=== PATIENT | female | born 1995 | race Hispanic/Latino ===

== ENCOUNTER 2017-08-04 16:15 | Emergency (ER) | payer MEDICAID ==
--- NOTE | 2017-08-04 17:06 | ED PDOC ---
HPI: Back Time Seen by Provider: 08/04/17 16:42 Chief Complaint (Nursing): Back Pain Chief Complaint (Provider): Back Pain and diarrhea History Per: Patient History/Exam Limitations: no limitations Onset/Duration Of Symptoms: Days (x 1) Current Symptoms Are (Timing): Still Present Quality Of Discomfort: Aching, "Pain" Additional Complaint(s): 21 year old female presents to the ED with thoracic, aching back pain since she woke up this morning. Over the afternoon, she also developed watery, non bloody diarrhea and a mild loss of appetite. Last week, her mother had an episode of a 24 hour diarrheal illness that spontaneously resolved. She has not taken any medications for pain and does not know the name of her PMD because she has never seen him. Denies recent travel, antibiotic use, nausea, vomiting, fever and chills. PMD: unknown Past Medical History Reviewed: Historical Data, Nursing Documentation, Vital Signs Vital Signs: Last Vital Signs Temp 98.2 F 08/04/17 16:30 Pulse 79 08/04/17 16:27 Resp 14 08/04/17 16:27 BP 110/71 08/04/17 16:27 Pulse Ox 100 08/04/17 16:27 - Medical History PMH: No Chronic Diseases - Surgical History Surgical History: No Surg Hx - Family History Family History: States: Other - Social History Current smoker - smoking cessation education provided: No Alcohol: Occasional Drugs: Denies - Home Medications Home Medications: Ambulatory Orders Medication Instructions Recorded Dicyclomine [Bentyl] 20 mg PO QID PRN #20 tab 08/04/17 Ibuprofen [Motrin Tab] 600 mg PO Q8 PRN #30 tab 08/04/17 - Allergies Allergies/Adverse Reactions: Allergies Allergy/AdvReac Type Severity Reaction Status Date / Time No Known Allergies Allergy Verified 08/04/17 16:27 Review of Systems ROS Statement: Except As Marked, All Systems Reviewed And Found Negative Musculoskeletal: Positive for: Back Pain (thoracic, aching back pain) Physical Exam - Reviewed Nursing Documentation Reviewed: Yes Vital Signs Reviewed: Yes - Physical Exam Appears: Positive for: Well, No Acute Distress Head Exam: Positive for: ATRAUMATIC, NORMAL INSPECTION, NORMOCEPHALIC Skin: Positive for: Warm, Dry Eye Exam: Positive for: EOMI, PERRL ENT: Positive for: Pharynx Is (clear), Other (moist mucous membranes ) Neck: Positive for: Painless ROM, Supple Cardiovascular/Chest: Positive for: Regular Rate, Rhythm, Chest Non Tender. Negative for: Murmur Respiratory: Positive for: Normal Breath Sounds. Negative for: Wheezing, Respiratory Distress Gastrointestinal/Abdominal: Positive for: Normal Exam, Bowel Sounds (active), Soft. Negative for: Tenderness, Mass, Distended, Guarding, Rebound Back: Positive for: Normal Inspection (Full ROM; (-) b/l leg raise), Other ( mild tenderness to paraspinal thoracic area). Negative for: L CVA Tenderness, R CVA Tenderness, Vertebral Tenderness Extremity: Positive for: Normal ROM. Negative for: Deformity Lymphatic: Negative for: Adenopathy Neurologic/Psych: Positive for: Alert. Negative for: Motor/Sensory Deficits - ECG O2 Sat by Pulse Oximetry: 100 (RA) Pulse Ox Interpretation: Normal Medical Decision Making Medical Decision Making: Time: 16:43 Impression: back ache and diarrhea with benign clinical findings Initial Plan: --urine preg --urine dip --Bentyl 20 mg PO --Motrin 600 mg PO --Tylenol 975 mg PO 21yo healthy patient with acute diarrhea and back pain, both symptoms mild and without any abnormal clinical findings. She is stable for discharge with symptomatic treatment and follow up outpatient. No findings that necessitate any further ER management. Advised increase fluids and take ibuprofen and bentyl prn. Scribe Attestation: Documented by Marii Dukes, acting as a scribe for Margot Dinh MD Provider Scribe Attestation: All medical record entries made by the Scribe were at my direction and personally dictated by me. I have reviewed the chart and agree that the record accurately reflects my personal performance of the history, physical exam, medical decision making, and the department course for this patient. I have also personally directed, reviewed, and agree with the discharge instructions and disposition. Disposition - Clinical Impression Clinical Impression: Back pain, Diarrhea - Disposition Referrals: [facility] [place] [Outside] (FOLLOW UP WITH YOUR DOCTOR OR CLINIC IN 48 HOURS FOR REEVALUATION) Disposition: Routine/Home Disposition Time: 18:00 Condition: STABLE Prescriptions: Dicyclomine [Bentyl] 20 mg PO QID PRN #20 tab PRN Reason: abdominal pain Ibuprofen [Motrin Tab] 600 mg PO Q8 PRN #30 tab PRN Reason: Pain, Moderate (4-7) Instructions: Diarrhea in Adolescents and Adults, Upper Back Pain (DC) Forms: [facility] ([place])
[2017-08-04 18:26] VITALS: BP 115/75; PULSE 72; RESP 16; TEMP 98.4; O2SAT 99
== END 2017-08-04 18:26 | disposition home or self-care (01) ==
LOC: H.ER 16:15
DX: M54.9 Dorsalgia, unspecified (principal); R19.7 Diarrhea, unspecified